=== PATIENT | female | born 1985 | race Caucasian/White ===

== ENCOUNTER → 2017-11-22 | Outpatient (CLI) | payer BC ==
[2017-11-22] MEDS: IOHEXOL 240 MG/ML 50ML VIAL. PO (11:53)
[2017-11-22] MEDS: IOHEXOL 300 MG/ML 100ML VIAL. IV (11:53)
== END | disposition home or self-care (01) ==
LOC: KCIC CT 10:55
DX: N82.8 Other female genital tract fistulae (principal); N73.9 Female pelvic inflammatory disease, unspecified
CPT/HCPCS: 74177; Q9966; Q9967

== ENCOUNTER → 2017-11-29 | Outpatient (CLI) | payer BC ==
[~2017-11-29] MED LIST: CONTRAST GIVEN MC; IOHEXOL 300 MG/ML 100ML VIAL. PR
== END | disposition home or self-care (01) ==
LOC: KCIC 07:52
DX: S31.41XD Laceration without foreign body of vagina and vulva, subsequent encounter (principal); Z90.710 Acquired absence of both cervix and uterus; X58.XXXD Exposure to other specified factors, subsequent encounter
CPT/HCPCS: 74270

== ENCOUNTER → 2018-02-09 | Outpatient (CLI) | payer BC ==
[2018-02-09] MEDS: SINCALIDE 1.27 MCG in IV NORMAL SALINE 50ML 30 ML IV (11:59)
== END | disposition home or self-care (01) ==
LOC: NM 10:01
DX: R10.11 Right upper quadrant pain (principal); R11.0 Nausea; R19.7 Diarrhea, unspecified
CPT/HCPCS: 78226; 96374; 96375; A9537; J2805

== ENCOUNTER → 2018-03-14 | Outpatient (CLI) | payer BC | END | disposition home or self-care (01) | LOC: NM 09:18 | DX: R10.84 Generalized abdominal pain (principal); R19.7 Diarrhea, unspecified | CPT/HCPCS: 78290; 96374; A9512 ==